=== PATIENT | female | born 1975 | race Caucasian/White ===

== ENCOUNTER 2019-02-14 05:17 | Day surgery (SDC) | payer OTHER ==
[~2019-02-14] VITALS: Ht 149.9 cm; Wt 85.5 kg
[~2019-02-14 05:17] MED LIST: GABA-531 PO; HYDR-4455 PO
[2019-02-14] MEDS ORDERED: SODIUM CHLORIDE 0.9% 1,000 ML IV ONE ×2 (05:26→06:00)
[2019-02-14] MEDS ORDERED: SIMETHICONE DROPS 40 MG/0.6 ML SOLUTION 30 ML ONE (07:29)
[2019-02-14] MEDS ORDERED: PROPOFOL 1% 20 ML VIAL IVP ONE (12:00)
[2019-02-14] MEDS ORDERED: LIDOCAINE/PF 2% 5 ML SYRINGE IVP ONE (12:00)
== END 2019-02-14 09:15 | disposition home or self-care (01) ==
LOC: SURGERY 05:17
PROVIDERS: ATTEND Student in an Organized Health Care Education/Training Program
DX: R19.7 Diarrhea, unspecified (principal); K64.8 Other hemorrhoids; K64.4 Residual hemorrhoidal skin tags; K44.9 Diaphragmatic hernia without obstruction or gangrene; G47.33 Obstructive sleep apnea (adult) (pediatric); E66.01 Morbid (severe) obesity due to excess calories; Z68.38 Body mass index [BMI] 38.0-38.9, adult; Z98.890 Other specified postprocedural states; Z86.711 Personal history of pulmonary embolism; Z79.899 Other long term (current) drug therapy
CPT/HCPCS: 43239; 45380; 84703; 88305; 88312; 88313; C1769; J2704; J3490; J7030

== ENCOUNTER 2019-10-17 09:04 | Emergency (ER) | payer OTHER ==
[~2019-10-17] VITALS: Ht 149.9 cm; Wt 89.5 kg
[~2019-10-17 09:04] MED LIST changes: +GABA-1181 PO; -GABA-531 PO
[2019-10-17] MEDS ORDERED: LIDOCAINE/PF 2% 5 ML VIAL IM ONE (09:07)
[2019-10-17] MEDS ORDERED: PROPOFOL 1% 20 ML VIAL IVP ONE (09:07)
[2019-10-17] MEDS ORDERED: AMLO5TAB9 PO (09:12)
[2019-10-17] MEDS ORDERED: [UNRECOGNIZED DRUG - CODE] TP (09:12)
[2019-10-17] MEDS ORDERED: NAPR-1025 PO (09:12)
[2019-10-17] MEDS ORDERED: AMIT75 PO (09:12)
[2019-10-17] MEDS ORDERED: SODIUM CHLORIDE 0.9% 1,000 ML ONE (11:09)
[2019-10-17 11:22] LABS: BASOPHILS % (AUTO) 0.3 % (0.0-2.0); EOSINOPHILS % (AUTO) 1.3 % (1.0-6.0); HEMATOCRIT 37.2 % (36-46); HEMOGLOBIN 12.5 g/dL (12.0-16.0); LYMPHOCYTES # (AUTO) 1.1 K/uL (1.0-4.8); LYMPHOCYTES % (AUTO) 22.5 % (22.0-44.0); MEAN CORPUSCULAR HEMOGLOBIN 31.6 pg (26.0-34.0); MEAN CORPUSCULAR HGB CONC 33.6 G/dL (31.0-37.0); MEAN CORPUSCULAR VOLUME 94 fL (80-100); MONOCYTES # (AUTO) 0.3 K/uL (0.1-1.0); MONOCYTES % (AUTO) 5.8 % (2.0-9.0); NEUTROPHILS # (AUTO) 3.4 K/uL (1.8-7.7); NEUTROPHILS % (AUTO) 70.1 % (40.0-70.0); PLATELET COUNT (AUTO) 199 K/uL (150-450); RED BLOOD CELL COUNT(AUTO) 3.96 MIL/uL (4.00-5.20); RED CELL DISTRIBUTION WIDTH 12.7 % (11.5-14.5)
[2019-10-17 11:34] LABS: PROTHROMBIN TIME 10.3 SEC (9.4-11.6)
[2019-10-17 11:48] LABS: ALANINE AMINOTRANSFERASE 21 U/L (12-78); ALBUMIN 3.3 g/dL (3.4-5.0); ALKALINE PHOSPHATASE 110 U/L (46-116); ANION GAP 10 mmol/L (8-16); ASPARTATE AMINOTRANSFERASE 16 U/L (15-37); BILIRUBIN,TOTAL 0.4 mg/dL (0.1-1.0); CARBON DIOXIDE 26 mmol/L (22-29); CHLORIDE 107 mmol/L (98-107); CREATININE 0.75 mg/dL (0.60-1.30); GLOMERULAR FILTR. RATE CALC > 60 mL/min (>60); GLUCOSE,RANDOM 89 mg/dL (70-110); HCG,QUANTITATIVE < 1 mIU/mL (0-6); LIPASE 95 U/L (73-393); POTASSIUM 4.1 mmol/L (3.5-5.1); SODIUM SERUM 143 mmol/L (136-145); TOTAL PROTEIN, SERUM 7.4 g/dL (6.4-8.2); UREA NITROGEN, BLOOD 12 mg/dL (7-18)
[2019-10-17 11:49] LABS: APPEARANCE,URINE CLEAR (CLEAR); GLUCOSE, URINE (UA) NEGATIVE (NEGATIVE); KETONES,URINE 15 mg/dL (NEGATIVE); LEUKOCYTE ESTERASE ,URINE NEGATIVE (NEGATIVE); NITRATE,URINE NEGATIVE (NEGATIVE); OCCULT BLOOD,URINE NEGATIVE (NEGATIVE); PROTEIN,URINE NEGATIVE (NEGATIVE)
[2019-10-17 11:51] LABS: CALCIUM, TOTAL 8.8 mg/dL (8.8-10.5)
[2019-10-17 11:56] LABS: BILIRUBIN,URINE PRELIM. POSITIVE (NEGATIVE)
[2019-10-17 12:03] LABS: BACTERIA,URINE None Seen /HPF (None Seen); RBC,URINE None Seen /HPF (0-2); WBC,URINE None Seen /HPF (0-5)
[2019-10-17 14:14] VITALS: BP 107/55
== END 2019-10-17 15:23 | disposition home or self-care (01) ==
LOC: EDUNIT# 09:04 → EMS 09:06
DX: T18.128A Food in esophagus causing other injury, initial encounter (principal); R13.10 Dysphagia, unspecified; J45.909 Unspecified asthma, uncomplicated; I10 Essential (primary) hypertension; Z88.6 Allergy status to analgesic agent; Z88.1 Allergy status to other antibiotic agents; Y92.89 Other specified places as the place of occurrence of the external cause
CPT/HCPCS: 36415; 43247; 71045; 80053; 81001; 83690; 84702; 85025; 85610; 85730; 86850; 86900; 86901; 99285; J2704; J3490; J7030; Z7610

== ENCOUNTER 2019-12-04 17:42 | Emergency (ER) | payer OTHER ==
[~2019-12-04] VITALS: Ht 160 cm; Wt 109.1 kg
[~2019-12-04 17:42] MED LIST changes: +AMIT75 PO; +AMLO-257 PO; +NAPR-1025 PO; +[UNRECOGNIZED DRUG - CODE] TP
[2019-12-04] MEDS ORDERED: SODIUM CHLORIDE 0.9% 1,000 ML IV ONE (18:30)
[2019-12-04] MEDS ORDERED: ACETAMINOPHEN 1000 MG/ISO-OSM 100 ML IV ONE (18:30)
[2019-12-04] MEDS ORDERED: ONDANSETRON HCL 4 MG/2 ML VIAL IVP ONE (18:30)
[2019-12-04 19:02] LABS: BASOPHILS % (AUTO) 0.3 % (0.0-2.0); EOSINOPHILS % (AUTO) 0.5 % (1.0-6.0); HEMATOCRIT 38.6 % (36-46); HEMOGLOBIN 12.6 g/dL (12.0-16.0); LYMPHOCYTES # (AUTO) 1.3 K/uL (1.0-4.8); LYMPHOCYTES % (AUTO) 21.9 % (22.0-44.0); MEAN CORPUSCULAR HEMOGLOBIN 30.8 pg (26.0-34.0); MEAN CORPUSCULAR HGB CONC 32.7 G/dL (31.0-37.0); MEAN CORPUSCULAR VOLUME 94 fL (80-100); MONOCYTES # (AUTO) 0.3 K/uL (0.1-1.0); MONOCYTES % (AUTO) 5.4 % (2.0-9.0); NEUTROPHILS # (AUTO) 4.3 K/uL (1.8-7.7); NEUTROPHILS % (AUTO) 71.9 % (40.0-70.0); PLATELET COUNT (AUTO) 211 K/uL (150-450); RED CELL DISTRIBUTION WIDTH 13.1 % (11.5-14.5)
[2019-12-04] MEDS ORDERED: IOVERSOL 320 MG/ML 100 ML VIAL ONE (19:42)
[2019-12-04] MEDS ORDERED: SODIUM CHLORIDE 0.9% 100 ML ONE (19:42)
[2019-12-04 19:50] LABS: ANION GAP 8 mmol/L (8-16); CARBON DIOXIDE 27 mmol/L (22-29); CHLORIDE 103 mmol/L (98-107); CREATININE 0.82 mg/dL (0.60-1.30); GLOMERULAR FILTR. RATE CALC > 60 mL/min (>60); GLUCOSE,RANDOM 92 mg/dL (70-110); POTASSIUM 3.7 mmol/L (3.5-5.1); SODIUM SERUM 138 mmol/L (136-145); UREA NITROGEN, BLOOD 12 mg/dL (7-18)
[2019-12-04 19:55] LABS: ALANINE AMINOTRANSFERASE 24 U/L (12-78); ALBUMIN 3.5 g/dL (3.4-5.0); ALKALINE PHOSPHATASE 98 U/L (46-116); ASPARTATE AMINOTRANSFERASE 17 U/L (15-37); BILIRUBIN,TOTAL 0.3 mg/dL (0.1-1.0); HCG,QUANTITATIVE 1 mIU/mL (0-6); LIPASE 76 U/L (73-393); TOTAL PROTEIN, SERUM 7.2 g/dL (6.4-8.2)
[2019-12-04 20:29] LABS: APPEARANCE,URINE CLEAR (CLEAR); BILIRUBIN,URINE NEGATIVE (NEGATIVE); GLUCOSE, URINE (UA) NEGATIVE (NEGATIVE); KETONES,URINE NEGATIVE (NEGATIVE); LEUKOCYTE ESTERASE ,URINE NEGATIVE (NEGATIVE); NITRATE,URINE NEGATIVE (NEGATIVE); OCCULT BLOOD,URINE NEGATIVE (NEGATIVE); PH,URINE 5.5 (5.0-8.0); PROTEIN,URINE NEGATIVE (NEGATIVE)
[2019-12-04 21:30] VITALS: BP 124/79
== END 2019-12-04 22:11 | disposition home or self-care (01) ==
LOC: EMS 17:42
DX: R10.9 Unspecified abdominal pain (principal); R19.7 Diarrhea, unspecified; R11.10 Vomiting, unspecified; J45.909 Unspecified asthma, uncomplicated; I10 Essential (primary) hypertension; Z90.49 Acquired absence of other specified parts of digestive tract; Z88.6 Allergy status to analgesic agent; Z79.899 Other long term (current) drug therapy
CPT/HCPCS: 36415; 71045; 74177; 80053; 81003; 83690; 84702; 85025; 96374; 96375; 99285; J0131; J2405; J7030; J7050; Q9967

== ENCOUNTER 2020-04-07 12:04 | Emergency (ER) | payer OTHER ==
[~2020-04-07] VITALS: Ht 157.5 cm; Wt 90.9 kg
[~2020-04-07 12:04] MED LIST changes: -GABA-1181 PO
[2020-04-07] MEDS ORDERED: TraMADol HCL 50 MG TABLET PO ONE (12:45)
[2020-04-07] MEDS ORDERED: METHOCARBAMOL 500 MG TABLET PO ONE (14:30)
[2020-04-07 15:11] VITALS: BP 73/68
== END 2020-04-07 15:39 | disposition home or self-care (01) ==
LOC: EMS 12:04
DX: S76.012A Strain of muscle, fascia and tendon of left hip, initial encounter (principal); I10 Essential (primary) hypertension; J45.909 Unspecified asthma, uncomplicated; Z88.6 Allergy status to analgesic agent; Z88.8 Allergy status to other drugs, medicaments and biological substances; Z79.899 Other long term (current) drug therapy; W01.0XXA Fall on same level from slipping, tripping and stumbling without subsequent striking against object, initial encounter; Y93.89 Activity, other specified; Y92.89 Other specified places as the place of occurrence of the external cause; Y99.8 Other external cause status
CPT/HCPCS: 73503

== ENCOUNTER 2020-06-04 18:24 | Emergency (ER) | payer OTHER ==
[~2020-06-04] VITALS: Ht 149.9 cm; Wt 88.6 kg
[~2020-06-04 18:24] MED LIST changes: +AMIT10TA6 PO; -AMIT75 PO; +PANT-31 PO
[2020-06-04] MEDS ORDERED: LOSA50TA37 PO (18:32)
[2020-06-04] MEDS ORDERED: LUBI24CA2 PO (18:32)
[2020-06-04] MEDS ORDERED: DILT60 PO (18:32)
[2020-06-04] MEDS ORDERED: OxyCODONE HCL/ACETAMINOPHEN 5-325 MG TABLET PO ONE (20:15)
[2020-06-04] MEDS: LIDOCAINE 1% 10 ML VIAL IARTIC ONE ×4 (20:50→21:33)
[2020-06-04] MEDS ORDERED: LIDOCAINE 5% TRANSDERMAL PATCH TD ONE (21:15)
[2020-06-04 21:33] VITALS: BP 140/80
== END 2020-06-04 21:34 | disposition home or self-care (01) ==
LOC: EMS 18:24
DX: M25.512 Pain in left shoulder (principal); I10 Essential (primary) hypertension; J45.909 Unspecified asthma, uncomplicated; Z88.6 Allergy status to analgesic agent; Z79.899 Other long term (current) drug therapy
CPT/HCPCS: 73030; 73060; 99284; J3490

== ENCOUNTER 2020-08-03 16:10 | Emergency (ER) | payer OTHER ==
[~2020-08-03] VITALS: Ht 149.9 cm; Wt 95.5 kg
[~2020-08-03 16:10] MED LIST changes: -AMLO-257 PO; +DILT60TA4 PO; -HYDR-4455 PO; +LOSA50TA37 PO; +LUBI24CA2 PO; -NAPR-1025 PO; -PANT-31 PO; -[UNRECOGNIZED DRUG - CODE] TP
[2020-08-03] MEDS ORDERED: KETOROLAC TROMETHAMINE 60 MG/2 ML VIAL IM ONE (16:45)
[2020-08-03 17:30] VITALS: BP 117/64
== END 2020-08-03 17:54 | disposition home or self-care (01) ==
LOC: EMS 16:12
DX: S70.02XA Contusion of left hip, initial encounter (principal); S40.012A Contusion of left shoulder, initial encounter; J45.909 Unspecified asthma, uncomplicated; I10 Essential (primary) hypertension; F17.200 Nicotine dependence, unspecified, uncomplicated; Z90.89 Acquired absence of other organs; Z88.6 Allergy status to analgesic agent; W01.0XXA Fall on same level from slipping, tripping and stumbling without subsequent striking against object, initial encounter; Y93.89 Activity, other specified; Y92.89 Other specified places as the place of occurrence of the external cause; Y99.8 Other external cause status
CPT/HCPCS: 73030; 73503; 96372; 99284; J1885